=== PATIENT | female | born 1945 | race Caucasian/White ===

== ENCOUNTER → 2017-07-07 | Outpatient (CLI) | payer MEDICARE ==
[~2017-07-07] MED LIST: ATEN25TA PO; GABA300C10 PO; HYDR-3144 PO; LISI1TAB5 PO; LORA1TAB PO; VENL75CA6 PO
[2017-07-07 13:00] LABS: BLOOD UREA NITROGEN 30 mg/dL (7-18)
[2017-07-07 13:03] LABS: ASPARTATE AMINO TRANSFERASE 14 U/L (15-37)
== END | disposition home or self-care (01) ==
LOC: STAR 11:30
PROVIDERS: ATTEND Surgery
DX: Z01.818 Encounter for other preprocedural examination (principal); I45.10 Unspecified right bundle-branch block
CPT/HCPCS: 36415; 80053; 93005

== ENCOUNTER 2017-07-11 07:25 | Inpatient (IN) | payer MEDICARE ==
[~2017-07-11] VITALS: Ht 180.3 cm; Wt 109.1 kg
[2017-07-11 08:41] VITALS: BP 148/74
[2017-07-11] MEDS ORDERED: LACTATED RINGERS 1,000 ML IV SCH (09:00)
[2017-07-11] MEDS ORDERED: MIDAZOLAM 1 MG/ML, 2ML ONE (09:36)
[2017-07-11] MEDS ORDERED: FENTANYL PF 250 MCG/5ML ONE (09:36)
[2017-07-11] MEDS ORDERED: BUPIVACAINE/PF 0.5% ONE (10:04)
[2017-07-11] MEDS ORDERED: EPINEPHRINE 1 MG/ML, 1ML ONE (10:04)
[2017-07-11] MEDS ORDERED: CEFAZOLIN 1,000 MG ONE (10:10)
[2017-07-11] MEDS ORDERED: DEXAMETHASONE 4 MG/ML, 1ML ONE (10:10)
[2017-07-11] MEDS ORDERED: NEOSTIGMINE 1 MG/ML, 10ML ONE (10:10)
[2017-07-11] MEDS ORDERED: PROPOFOL 10 MG/ML, 20ML ONE (10:10)
[2017-07-11] MEDS ORDERED: SUCCINYLCHOLINE 20 MG/ML, 10ML ONE (10:10)
[2017-07-11] MEDS ORDERED: ROCURONIUM 10 MG/ML ONE (10:10)
[2017-07-11] MEDS ORDERED: ONDANSETRON 2MG/ML, 2ML ONE (10:10)
[2017-07-11] MEDS ORDERED: ACETAMINOPHEN 325 MG TABLET PO PRN ×2 (11:00→14:00)
[2017-07-11] MEDS ORDERED: PROMETHAZINE 25 MG/ML, 1ML IV PRN (11:00)
[2017-07-11] MEDS ORDERED: FENTANYL PF 100 MCG/2ML ONE (12:00)
[2017-07-11] MEDS ORDERED: morphine SULFATE 10 MG/ML, 1ML ONE (12:00)
[2017-07-11] MEDS: FENTANYL PF 100 MCG/2ML IV PRN ×2 (12:02→12:15)
[2017-07-11] MEDS: morphine SULFATE 10 MG/ML, 1ML IV PRN ×2 (12:08→12:20)
[2017-07-11] MEDS ORDERED: OXYcodone 5 MG/5 ML ORAL.SOL UDC ONE (12:30)
[2017-07-11] MEDS ORDERED: ACETAMINOPHEN 650 MG/20.3 ML UDC ONE (12:30)
[2017-07-11] MEDS: OXYcodone 5 MG/5 ML ORAL.SOL UDC PO PRN (12:34)
[2017-07-11] MEDS ORDERED: HYDROmorphone 2 MG/ML, 1ML ONE (12:38)
[2017-07-11] MEDS: HYDROmorphone 2 MG/ML, 1ML IVPush PRN ×2 (12:41→21:22)
[2017-07-11 13:15] VITALS: BP 129/72
[2017-07-11] MEDS ORDERED: ACETAMINOPHEN 650 MG SUPP PR PRN (14:00)
[2017-07-11 17:00] VITALS: BP 106/52
[2017-07-11] MEDS: POTASSIUM CHLORIDE 20 MEQ in D5%-0.45% NACL 1,000 ML IV SCH (17:59)
[2017-07-11] MEDS: GABAPENTIN 300 MG CAPSULE PO SCH ×2 (17:59→21:22)
[2017-07-11 18:47] VITALS: BP 113/51
[2017-07-11] MEDS: HYDROcodone/APAP 5/325 TABLET PO PRN ×2 (19:25→23:51)
[2017-07-12 00:59] VITALS: BP 100/48
[2017-07-12] MEDS: POTASSIUM CHLORIDE 20 MEQ in D5%-0.45% NACL 1,000 ML IV SCH (02:38)
[2017-07-12 04:02] VITALS: BP 142/67
[2017-07-12] MEDS: HYDROcodone/APAP 5/325 TABLET PO PRN ×2 (04:12→07:59)
[2017-07-12] MEDS: HYDROmorphone 2 MG/ML, 1ML IVPush PRN (05:36)
[2017-07-12 05:39] LABS: PTH INTACT INTERPRETATION ** Comment **
[2017-07-12] MEDS ORDERED: ATENOLOL 25 MG TABLET PO SCH (06:00)
[2017-07-12 06:46] VITALS: BP 107/54
[2017-07-12] MEDS: GABAPENTIN 300 MG CAPSULE PO SCH (07:59)
[2017-07-12] MEDS ORDERED: LISINOPRIL 20 MG TABLET PO SCH (09:00)
[2017-07-12] MEDS ORDERED: HYDROCHLOROTHIAZIDE 12.5 MG CAPSULE PO SCH (09:00)
[2017-07-12] MEDS ORDERED: VENLAFAXINE 75 MG CAP ER PO SCH (09:00)
[2017-07-12] MEDS ORDERED: CALC-118 PO (10:54)
[2017-07-12] MEDS ORDERED: LEVO150T PO (10:55)
[2017-07-12] MEDS ORDERED: HYDR-3240 PO (10:57)
== END 2017-07-12 11:08 | disposition home or self-care (01) | DRG 627 ==
LOC: OUT 07:25 → 4NOR 13:20 → OUT 13:53 → 4NOR 14:23 → DCLOUNGE 07-12 10:45
PROVIDERS: ADMIT Surgery; ATTEND Surgery
PROC: 0GTK0ZZ Resection of Thyroid Gland, Open Approach (ICD-10-PCS; principal; 2017-07-11 10:00)
DX: E04.2 Nontoxic multinodular goiter (principal); I10 Essential (primary) hypertension; F41.9 Anxiety disorder, unspecified
CPT/HCPCS: 36415; 82310; 83970; 88307; J0171; J0690; J1100; J1170; J2250; J2405; J2704; J2710; J3010; J3480; J3490; C1760; J0330; J2270; J7120